=== PATIENT | male | born 1985 | race Caucasian/White ===

== ENCOUNTER 2021-11-16 14:46 | Inpatient (IN) | payer OTHER, SELFPAY ==
[~2021-11-16 14:46] MED LIST: Iopamidol-370 76% 500 ML 1 ML ONE
[2021-11-16 15:10] LABS: #Lymphocytes 1.7 thou/uL (1.20-3.40); #Neutrophils 13.2 thou/uL (1.40-6.50); %Basophils 0.2 % (0.0-1.0); %Eosinophils 0.1 % (0.0-10.0); %Lymphocytes 10.7 % (21.0-51.0); %Monocytes 6.4 % (0.0-10.0); %Neutrophils 82.6 % (42.0-75.0); Mean Corpuscular HGB CONC 33.9 g/dL (32.0-36.0); Mean Corpuscular Hemoglobin 29.7 pg (27.0-31.0); Mean Corpuscular Volume 87.4 fL (78.0-98.0); Mean Platelet Volume 7.2 fL (7.4-10.4); Platelet Count 212 thou/uL (130-400); Red Blood Cell (RBC) Count 4.39 mill/uL (4.70-6.10)
[2021-11-16] MEDS ORDERED: Insulin Regular 300 UNITS/3 ML VIAL SC PRN (15:17)
[2021-11-16] MEDS ORDERED: Dextrose 5% in Water 1,000 ML IV PRN (15:17)
[2021-11-16] MEDS ORDERED: hydrALAZINE 20 MG/ML VIAL SLOW IVP PRN (15:17)
[2021-11-16] MEDS ORDERED: Ondansetron PF 4 MG/2 ML Vial IVP PRN (15:17)
[2021-11-16] MEDS ORDERED: Dextrose 50% Abboject 50 ML SYRINGE SLOW IVP PRN (15:17)
[2021-11-16 15:30] LABS: PTT 30.3 sec (22.9-36.1)
[2021-11-16] MEDS ORDERED: Propofol BOLUS 1,000 MG/100 ML VIAL IV PRN (15:30)
[2021-11-16] MEDS ORDERED: Sodium Chloride 0.9% 1,000 ML IV SCH (15:30)
[2021-11-16] MEDS ORDERED: Ventilator Sedation Protocol 1 EACH FS SCH (15:30)
[2021-11-16 15:35] LABS: ALT (SGPT) 43 U/L (8-55); AST (SGOT) 68 U/L (5-34); Alkaline Phosphatase 70 U/L (40-110); Anion Gap 13 mmol/L (10-20); BUN (Urea Nitrogen) 15 mg/dL (8.9-20.6); Bilirubin, Total 0.6 mg/dL (0.2-1.2); Calc. Creatinine Clearance 0 mL/min (70-130); Calcium 8.3 mg/dL (7.8-10.44); Carbon Dioxide 22 mmol/L (22-29); Chloride 106 mmol/L (98-107); Globulin 2.2 g/dL (2.4-3.5); Glucose 82 mg/dL (70-105); Magnesium 2.1 mg/dL (1.6-2.6); Potassium 3.7 mmol/L (3.5-5.1); Protein, Total 6.2 g/dL (6.0-8.3); Sodium 137 mmol/L (136-145)
[2021-11-16 15:37] LABS: Actual Bicarbonate (HCO3a) 21.7 mEq/L (22-28); Analyzer IN Cardio ER; Base Excess (BEa) -2.4 mEq/L (-2.0 to +3.0); CO2 Tension 35.1 mmHg (35.0-45.0); Calcium, Ionized (arterial) 1.07 mmol/L (1.12-1.30); Carboxyhemoglobin (COHb) 0.3 gm% (0.0-3.0); Hemoglobin (Hb) 12.1 g/dL (14.0-18.0); O2 Tension (PaO2), arterial 173.1 mmHg (80.0-100.0); Potassium - ABG Lab 3.57 mmol/L (3.70-5.30); pH, Arterial 7.41 (7.35-7.45)
[2021-11-16 15:38] LABS: CK (CPK) 1843 U/L (30-200); Phosphorus 2.1 mg/dL (2.3-4.7)
[2021-11-16 15:38] LABS: ALV-art Gradient 139.525 mmHg (0-20); Puncture Site RRA
[2021-11-16 15:41] LABS: Bacteria/HPF None Seen HPF (None Seen); Bilirubin Negative (Negative); Blood, Urine Trace (Negative); Clarity Clear (Clear); Glucose, Urine (Dipstick) Normal (Negative); Ketone, Urine 10 mg/dL (Negative); Leukocyte Negative Leu/uL (Negative); Nitrite Negative (Negative); Protein, Urine (Dipstick) 10 mg/dL (Neg-Trace); Squamous Epithelial 0-3 HPF (0-3); Urobilinogen Normal mg/dL (Less than 2); WBC/HPF 0-3 HPF (0-3); pH, Urine 5.5 (5.0-9.0)
[2021-11-16 15:42] LABS: Specific Gravity, Urine 1.063 (1.002-1.036)
[2021-11-16 15:43] LABS: Sperm/HPF 2+ HPF (None Seen)
[2021-11-16 15:44] LABS: Urine Culture Reflex No No
[2021-11-16] MEDS ORDERED: Calcium Chloride 13.6 MEQ in Sodium Chloride 0.9% 100 ML IVPB SCH (15:45)
[2021-11-16 15:49] LABS: Amphetamine Detected (NotDetected); Barbiturates Screen Not Detected (NotDetected); Benzodiazepine Screen Detected (NotDetected); Cocaine Metabolite Screen Not Detected (NotDetected); Methadone Not Detected (NotDetected); Methamphetamine Detected (NotDetected); Opiate Screen Not Detected (NotDetected); Oxycodone Screen Not Detected (NotDetected); Phencyclidine (PCP) Not Detected (NotDetected); THC/Cannabinoid Screen Not Detected (NotDetected); Tricyclic Screen Not Detected (NotDetected)
[2021-11-16] MEDS ORDERED: Fentanyl 100 MCG/2 ML VIAL ONE (16:11)
[2021-11-16] MEDS ORDERED: Lidocaine 1% (PF) 30 ML VIAL SC SCH (16:45)
[2021-11-16] MEDS ORDERED: Potassium Phosphate 30 MMOL in Sodium Chloride 0.9% 250 ML 250 ML IVPB SCH (16:45)
[2021-11-16 16:46] LABS: SARS-CoV-2 NAA Rapid Test Not Detected (NotDetected)
[2021-11-16 17:03] VITALS: BMI 30.1
[2021-11-16] MEDS ORDERED: Boostrix 0.5 ML (Tdap) VIAL IM ONE (17:11)
[2021-11-16] MEDS: Sodium Chloride 0.9% 1,000 ML IV SCH ×2 (17:13→17:18)
[2021-11-16] MEDS: Acetaminophen 500 MG TAB PO SCH ×2 (17:21→22:07)
[2021-11-16] MEDS ORDERED: CEFAZOLIN 2 GM, Admixture Fee 1 EACH in Sodium Chloride 0.9% 100 ML IVPB SCH (17:30)
[2021-11-16] MEDS: Propofol 1,000 MG/100 ML VIAL IV PRN (19:23)
[2021-11-16] MEDS: Famotidine/PF 20 mg/2ml Vial SLOW IVP SCH (21:52)
[2021-11-16] MEDS: Senokot S 8.6-50 MG TAB PO SCH (21:52)
[2021-11-17 02:05] VITALS: BP 106/62
[2021-11-17 03:46] LABS: #Eosinphils 0.1 thou/uL (0.0-0.7); #Lymphocytes 2.3 thou/uL (1.20-3.40); #Monocytes 0.8 thou/uL (0.11-0.59); #Neutrophils 5.4 thou/uL (1.40-6.50); %Basophils 0.6 % (0.0-1.0); %Lymphocytes 26.6 % (21.0-51.0); %Monocytes 8.9 % (0.0-10.0); %Neutrophils 62.9 % (42.0-75.0); Hemoglobin 13.1 g/dL (14.0-18.0); Mean Corpuscular HGB CONC 34.5 g/dL (32.0-36.0); Mean Corpuscular Hemoglobin 30.7 pg (27.0-31.0); Mean Corpuscular Volume 88.9 fL (78.0-98.0); Mean Platelet Volume 7.4 fL (7.4-10.4); Platelet Count 154 thou/uL (130-400); Red Blood Cell (RBC) Count 4.27 mill/uL (4.70-6.10); White Blood Cell (WBC) Count 8.5 thou/uL (4.8-10.8)
[2021-11-17 04:09] LABS: Anion Gap 11 mmol/L (10-20); BUN (Urea Nitrogen) 11 mg/dL (8.9-20.6); CK (CPK) 1317 U/L (30-200); Calc. Creatinine Clearance 205 mL/min (70-130); Calcium 8.3 mg/dL (7.8-10.44); Carbon Dioxide 21 mmol/L (22-29); Chloride 111 mmol/L (98-107); Glucose 85 mg/dL (70-105); Magnesium 2.1 mg/dL (1.6-2.6); Phosphorus 2.2 mg/dL (2.3-4.7); Potassium 3.2 mmol/L (3.5-5.1); Sodium 140 mmol/L (136-145)
[2021-11-17] MEDS: Acetaminophen 500 MG TAB PO SCH ×2 (04:57→08:17)
[2021-11-17] MEDS: Propofol 1,000 MG/100 ML VIAL IV PRN ×2 (04:58→08:19)
[2021-11-17] MEDS: Sodium Chloride 0.9% 1,000 ML IV SCH (04:59)
[2021-11-17 07:14] LABS: Actual Bicarbonate (HCO3a) 19.3 mEq/L (22-28); Base Excess (BEa) -2.7 mEq/L (-2.0 to +3.0); Calcium, Ionized (arterial) 1.12 mmol/L (1.12-1.30); Carboxyhemoglobin (COHb) 0.3 gm% (0.0-3.0); Hemoglobin (Hb) 11.8 g/dL (14.0-18.0); O2 Tension (PaO2), arterial 127.2 mmHg (80.0-100.0); Potassium - ABG Lab 3.23 mmol/L (3.70-5.30); pH, Arterial 7.49 (7.35-7.45)
[2021-11-17] MEDS ORDERED: PHOS-NAK 1 PKT PACK PO SCH (07:30)
[2021-11-17 07:39] LABS: ALV-art Gradient 125.875 mmHg (0-20); CO2 Tension 25.7 mmHg (35.0-45.0); Puncture Site RRA
[2021-11-17] MEDS: Famotidine/PF 20 mg/2ml Vial SLOW IVP SCH (08:17)
[2021-11-17] MEDS: Senokot S 8.6-50 MG TAB PO SCH (08:18)
[2021-11-17] MEDS ORDERED: Cyclobenzaprine 10 MG TAB PO PRN (08:44)
[2021-11-17] MEDS ORDERED: traMADol HCl 50 MG TAB PO PRN ×2 (08:44)
[2021-11-17] MEDS ORDERED: CEFAZOLIN 2 GM, Admixture Fee 1 EACH in Sodium Chloride 0.9% 100 ML IVPB SCH (09:00)
[2021-11-17] MEDS ORDERED: Polyethylene Glycol 3350 17 GM Packet PO SCH (09:00)
[2021-11-17 09:22] VITALS: TEMP 99
[2021-11-17] MEDS ORDERED: Haloperidol Lactate 5 MG/ML VIAL SLOW IVP PRN (09:56)
[2021-11-17] MEDS ORDERED: Haloperidol Lactate 5 MG/ML VIAL ONE (09:59)
== END 2021-11-17 14:31 | disposition home or self-care (01) | DRG 922 ==
LOC: ERS 14:46 → CCU 14:51
PROVIDERS: ADMIT Surgery; ATTEND Surgery
PROC: 3E03329 Introduction of Other Anti-infective into Peripheral Vein, Percutaneous Approach (ICD-10-PCS; principal; 2021-11-16)
PROC: 5A1935Z Respiratory Ventilation, Less than 24 Consecutive Hours (ICD-10-PCS; 2021-11-16)
DX: T71.162A Asphyxiation due to hanging, intentional self-harm, initial encounter (principal); J96.00 Acute respiratory failure, unspecified whether with hypoxia or hypercapnia; M62.82 Rhabdomyolysis; Z20.822 Contact with and (suspected) exposure to COVID-19; S92.911B Unspecified fracture of right toe(s), initial encounter for open fracture; F19.10 Other psychoactive substance abuse, uncomplicated; Z78.1 Physical restraint status; X83.8XXA Intentional self-harm by other specified means, initial encounter
CPT/HCPCS: 36415; 36416; 36600; 70450; 70498; 71045; 72125; 80048; 80306; 80307; 82550; 82805; 83605; 83735; 84100; 85025; 85610; 85730; 90715; 94002; 94003; 94640; 96365; 96375; G0390; J0690; J1630; J2001; J2704; J3010; J3490; J7050; J7620; Q9967; S0028